=== PATIENT | female | born 1955 | race Caucasian/White ===

== ENCOUNTER 2017-12-12 18:26 | Inpatient (IN) | payer OTHER ==
[~2017-12-12] VITALS: Ht 157.5 cm; Wt 75.4 kg
[~2017-12-12 18:26] MED LIST: ROCURONIUM 10MG/ML,5ML ONE; SUCCINYLCHOLINE 20 MG/ML, 10ML ONE
[2017-12-12] MEDS ORDERED: SODIUM CHLORIDE 0.9% 1,000 ML IV ONE (19:49)
[2017-12-12] MEDS ORDERED: FENTANYL PF 100 MCG/2ML ONE ×2 (19:51→21:47)
[2017-12-12] MEDS ORDERED: LIDOCAINE JELLY 2%, 30GM ONE (19:52)
[2017-12-12] MEDS ORDERED: ALBUTEROL/IPRATROPIUM 2.5MG/0.5MG, 3 ML NPPB PRN (20:00)
[2017-12-12] MEDS ORDERED: HYDROmorphone 1 MG/ML, 1ML IV PRN (20:00)
[2017-12-12] MEDS ORDERED: MEPERIDINE/PF 25MG/0.5ML IVPush PRN (20:00)
[2017-12-12] MEDS ORDERED: ONDANSETRON ODT 8 MG PO PRN (20:00)
[2017-12-12] MEDS ORDERED: LABETALOL 5MG/ML, 20ML IV PRN (20:00)
[2017-12-12] MEDS ORDERED: MIDAZOLAM 1 MG/ML, 2ML IV PRN (20:00)
[2017-12-12] MEDS ORDERED: ACETAMINOPHEN 325 MG TABLET PO PRN (20:00)
[2017-12-12] MEDS ORDERED: OXYcodone 5 MG/5 ML ORAL.SOL UDC PO PRN (20:00)
[2017-12-12] MEDS ORDERED: SCOPOLAMINE PATCH, 1.5MG PATCH.TD72 TD PRN (20:00)
[2017-12-12] MEDS ORDERED: FENTANYL PF 100 MCG/2ML IV PRN (20:00)
[2017-12-12] MEDS ORDERED: PROMETHAZINE 25 MG SUPP PR PRN (20:00)
[2017-12-12] MEDS ORDERED: BUPIVACAINE/PF-EPI 0.5% 1:200K ONE (20:13)
[2017-12-12] MEDS ORDERED: THROMBIN 5,000 UNIT VIAL TP ONE (20:14)
[2017-12-12] MEDS ORDERED: AMPICILLIN 2 GM ONE (20:14)
[2017-12-12] MEDS ORDERED: LIDOCAINE 1%-EPI 1:100K, 30ML ONE ×2 (20:14→20:55)
[2017-12-12] MEDS ORDERED: GENTAMICIN 80 MG/2 ML ONE ×2 (20:14→20:15)
[2017-12-12] MEDS ORDERED: NEOMY/POLYMYXIN B GU IRR. 1 ML IRRIG ONE (20:14)
[2017-12-12] MEDS ORDERED: PIPERACILLIN/TAZO/PMX 3.375GM 50 ML IV ONE (21:00)
[2017-12-12] MEDS ORDERED: ONDANSETRON 2MG/ML, 2ML ONE (21:14)
[2017-12-12] MEDS ORDERED: PROPOFOL 10 MG/ML, 20ML ONE (21:14)
[2017-12-12] MEDS ORDERED: EPHEDRINE 50 MG/ML, 1ML ONE (21:14)
[2017-12-12] MEDS ORDERED: CEFAZOLIN 1,000 MG ONE (21:14)
[2017-12-12] MEDS ORDERED: DEXAMETHASONE 4 MG/ML, 1ML ONE (21:14)
[2017-12-12] MEDS ORDERED: ESTROGENS CONJUGATED VAG CRM 0.625MG/1G, 30GM ONE (21:15)
[2017-12-12] MEDS ORDERED: OXYcodone 5 MG/5 ML ORAL.SOL UDC ONE (21:47)
[2017-12-12] MEDS ORDERED: ACETAMINOPHEN 650 MG/20.3 ML UDC ONE (21:47)
[2017-12-12] MEDS ORDERED: MORPHINE SULFATE 4 MG/ML, 1ML IV PRN (23:30)
[2017-12-12] MEDS ORDERED: ONDANSETRON ODT 4 MG PO PRN (23:30)
[2017-12-12] MEDS ORDERED: LACTATED RINGERS 1,000 ML IV SCH (23:30)
[2017-12-12] MEDS: HYDROcodone/APAP 5/325 TABLET PO PRN (23:48)
[2017-12-12] MEDS: OXYBUTYNIN CHLORIDE 5 MG TABLET PO SCH (23:48)
[2017-12-13 01:41] VITALS: BP 121/73
[2017-12-13] MEDS: PIPERACILLIN/TAZO/PMX 3.375GM 50 ML IV SCH ×2 (02:47→08:23)
[2017-12-13] MEDS: HYDROcodone/APAP 5/325 TABLET PO PRN ×2 (03:49→08:24)
[2017-12-13 05:13] VITALS: BP 98/62
[2017-12-13 08:23] VITALS: BP 99/61
[2017-12-13] MEDS: OXYBUTYNIN CHLORIDE 5 MG TABLET PO SCH (08:24)
[2017-12-13] MEDS ORDERED: DOCUSATE 100 MG CAPSULE PO SCH (09:00)
[2017-12-13] MEDS ORDERED: SIMETHICONE 80 MG CHEW TAB PO SCH (09:00)
[2017-12-13] MEDS ORDERED: OXYB5TAB33 PO (11:34)
[2017-12-13] MEDS ORDERED: HYDR-3240 PO (11:37)
[2017-12-13] MEDS ORDERED: DOCU-131 PO (11:38)
== END 2017-12-13 12:15 | disposition home or self-care (01) | DRG 664 ==
LOC: OR 19:01 → EDIP 19:49 → 4NOR 22:43
PROVIDERS: ADMIT Urology; ATTEND Urology
PROC: 0TPB8JZ Removal of Synthetic Substitute from Bladder, Via Natural or Artificial Opening Endoscopic (ICD-10-PCS; principal; 2017-12-12 20:00)
DX: N99.89 Other postprocedural complications and disorders of genitourinary system (principal); Z87.891 Personal history of nicotine dependence; N32.89 Other specified disorders of bladder; Y83.8 Other surgical procedures as the cause of abnormal reaction of the patient, or of later complication, without mention of misadventure at the time of the procedure
CPT/HCPCS: 99285; G0378; J0290; J0690; J1100; J2405; J2543; J2704; J3010; J3490; J0330; J1580; J7120

== ENCOUNTER 2017-12-13 15:37 | Emergency (ER) | payer OTHER ==
[~2017-12-13] VITALS: Ht 157.5 cm; Wt 75.4 kg
[~2017-12-13 15:37] MED LIST changes: +DOCU-131 PO; +HYDR-3240 PO; +OXYB5TAB33 PO; -ROCURONIUM 10MG/ML,5ML ONE; -SUCCINYLCHOLINE 20 MG/ML, 10ML ONE
[2017-12-13 15:46] VITALS: BP 127/73
== END 2017-12-13 17:42 | disposition home or self-care (01) ==
LOC: ED 16:43
DX: T83.091A Other mechanical complication of indwelling urethral catheter, initial encounter (principal); Z87.891 Personal history of nicotine dependence; X58.XXXA Exposure to other specified factors, initial encounter; Y93.89 Activity, other specified; Y92.89 Other specified places as the place of occurrence of the external cause; Y99.8 Other external cause status
CPT/HCPCS: 51702; 99284

== ENCOUNTER → 2017-12-19 | Outpatient (CLI) | payer OTHER ==
[~2017-12-19] MED LIST changes: +CYSTO CONRAY II 250 ML VIAL UR ONE
== END | disposition home or self-care (01) ==
LOC: RAD 08:43
PROVIDERS: ATTEND Urology
DX: N39.3 Stress incontinence (female) (male) (principal); N39.9 Disorder of urinary system, unspecified
CPT/HCPCS: 74430; Q9958